=== PATIENT | male | born 1965 | race Caucasian/White ===

== ENCOUNTER 2022-04-09 12:35 | Outpatient (RCR) | payer OTHER, SELFPAY ==
[2022-04-09 12:50] LABS: Basophils Absolute Auto 0.04 K/uL (0.00-0.30); Basophils Percent Auto 0.8 % (0.0-3.0); Eosinophils Percent Auto 2.1 % (0.0-7.0); Hematocrit 38.4 % (37.0-53.0); Hemoglobin* 13.5 gm/dL (13.5-17.5); Immature Granulocytes Abs Auto 0.01 K/uL (0.00-0.30); Lymphocytes Absolute Auto 1.02 K/uL (0.90-2.90); Lymphocytes Percent Auto 21.2 % (20-44); Mean Corpuscular HGB Conc 35 gm/dL (32-36); Mean Corpuscular Hemoglobin 44 pg (26-34); Mean Corpuscular Volume 125 fL (80-100); Monocytes Percent Auto 5.8 % (0.0-11.0); Neutrophils Absolute Auto 3.37 K/uL (1.7-7.0); Neutrophils Percent Auto 69.9 % (42.0-72.0); Platelet Count* 376 K/uL (140-440); RDW Coefficient of Variation % 11.1 % (11.5-15.5); Red Blood Count 3.07 m/uL (4.30-5.90); White Blood Count* 4.82 K/uL (4.50-11.00)
[2022-04-09 12:54] LABS: Slide Review Reflex No
[2022-04-09 13:10] LABS: Albumin* 4.3 g/dL (3.3-5.0)
[2022-04-09 13:11] LABS: Chloride* 102 mmol/L (96-114); Potassium* 4.2 mmol/L (3.6-5.1); Sodium* 137 mmol/L (135-149)
[2022-04-09 13:13] LABS: Alkaline Phosphatase* 58 U/L (40-150); Aspartate Amino Transferase* 28 U/L (12-35); Bilirubin Total* 0.8 mg/dL (0.1-1.5); Blood Urea Nitrogen* 18 mg/dL (7-30); Carbon Dioxide* 33 mmol/L (20-32); Glucose* 101 mg/dL (60-115)
[2022-04-09 13:14] LABS: Alanine Aminotransferase* 16 U/L (4-50); Calcium* 8.7 mg/dL (8.4-10.6)
[2022-04-09 14:10] LABS: Lactate Dehydrogenase* 719 U/L (313-618)
== END 2022-05-04 23:59 | disposition home or self-care (01) ==
LOC: CCIC 12:35
PROVIDERS: PCP Family Medicine; Visit Provider Internal Medicine Hematology & Oncology
DX: D45 Polycythemia vera (principal)
CPT/HCPCS: 36415; 80053; 83615; 85025; 99212; 99213; 99214

== ENCOUNTER 2022-10-21 08:00 | Outpatient (RCR) | payer OTHER, SELFPAY ==
[2022-07-08 08:43] LABS: Basophils Absolute Auto 0.05 K/uL (0.00-0.30); Basophils Percent Auto 1.1 % (0.0-3.0); Eosinophils Absolute Auto 0.13 K/uL (0.00-0.50); Eosinophils Percent Auto 2.8 % (0.0-7.0); Hematocrit 38.2 % (37.0-53.0); Hemoglobin* 13.5 gm/dL (13.5-17.5); Immature Granulocytes Abs Auto 0.01 K/uL (0.00-0.30); Lymphocytes Absolute Auto 1.11 K/uL (0.90-2.90); Lymphocytes Percent Auto 23.6 % (20-44); Mean Corpuscular HGB Conc 35 gm/dL (32-36); Mean Corpuscular Hemoglobin 44 pg (26-34); Mean Corpuscular Volume 124 fL (80-100); Monocytes Percent Auto 5.7 % (0.0-11.0); Neutrophils Absolute Auto 3.13 K/uL (1.7-7.0); Neutrophils Percent Auto 66.6 % (42.0-72.0); Platelet Count* 446 K/uL (140-440); RDW Coefficient of Variation % 12.2 % (11.5-15.5); Red Blood Count 3.07 m/uL (4.30-5.90); Slide Review Reflex No
[2022-07-08 08:56] LABS: Albumin* 4.2 g/dL (3.3-5.0)
[2022-07-08 08:57] LABS: Chloride* 101 mmol/L (96-114); Potassium* 4.1 mmol/L (3.6-5.1); Sodium* 138 mmol/L (135-149)
[2022-07-08 08:59] LABS: Aspartate Amino Transferase* 20 U/L (12-35); Bilirubin Total* 0.5 mg/dL (0.1-1.5); Carbon Dioxide* 32 mmol/L (20-32); Estimated Glomerular Filt Rate 87 ml/min; Total Protein* 7.1 g/dL (6.0-8.3)
[2022-07-08 09:00] LABS: Alanine Aminotransferase* 14 U/L (4-50); Alkaline Phosphatase* 61 U/L (40-150); Blood Urea Nitrogen* 19 mg/dL (7-30); Calcium* 8.7 mg/dL (8.4-10.6); Glucose* 92 mg/dL (60-115); Lactate Dehydrogenase* 447 U/L (313-618)
--- NOTE | 2022-07-10 11:58 | ONC.NURNOTE ---
Lab results reviewed by Dr Lewis and called to Tahir ann appts reviewed and scheduled for 3 months reports no concerns or changes dose reviewed
[2022-10-21 08:31] LABS: Basophils Percent Auto 1.2 % (0.0-3.0); Eosinophils Percent Auto 1.9 % (0.0-7.0); Hemoglobin* 13.4 gm/dL (13.5-17.5); Immature Granulocytes Pct Auto 0.2 %; Lymphocytes Percent Auto 26.3 % (20-44); Mean Corpuscular HGB Conc 35 gm/dL (32-36); Mean Corpuscular Hemoglobin 44 pg (26-34); Mean Corpuscular Volume 124 fL (80-100); Monocytes Percent Auto 6.5 % (0.0-11.0); Neutrophils Percent Auto 63.9 % (42.0-72.0); Platelet Count* 448 K/uL (140-440); RDW Coefficient of Variation % 11.8 % (11.5-15.5); Red Blood Count 3.06 m/uL (4.30-5.90); White Blood Count* 4.14 K/uL (4.50-11.00)
[2022-10-21 08:48] LABS: Albumin* 4.1 g/dL (3.3-5.0); Chloride* 103 mmol/L (96-114); Potassium* 3.9 mmol/L (3.6-5.1); Sodium* 138 mmol/L (135-149)
[2022-10-21 08:50] LABS: Estimated Glomerular Filt Rate 87 ml/min
[2022-10-21 08:51] LABS: Alanine Aminotransferase* 20 U/L (4-50); Alkaline Phosphatase* 55 U/L (40-150); Aspartate Amino Transferase* 23 U/L (12-35); Bilirubin Total* 0.9 mg/dL (0.1-1.5); Blood Urea Nitrogen* 20 mg/dL (7-30); Calcium* 8.5 mg/dL (8.4-10.6); Carbon Dioxide* 32 mmol/L (20-32); Glucose* 86 mg/dL (60-115); Lactate Dehydrogenase* 190 U/L (120-246); Total Protein* 6.9 g/dL (6.0-8.3)
[2022-10-21 09:07] LABS: Slide Review Reflex Yes
[2022-10-21 09:08] LABS: Slide Review Acceptable Review (Acceptable)
--- NOTE | 2022-10-27 15:54 | ONC.NURNOTE ---
lab results reviewed by Dr Mike and called to Tahir message left on to call with results- stable next apps due lab in January and provider Delmy
== END 2023-01-04 23:59 | disposition home or self-care (01) ==
LOC: CCIC 08:00
PROVIDERS: Clinical Nurse Specialist; PCP Family Medicine; Referring Provider Family Medicine; Visit Provider Internal Medicine Hematology & Oncology
DX: D45 Polycythemia vera (principal)
CPT/HCPCS: 36415; 80053; 83615; 85025

== ENCOUNTER 2023-06-10 10:00 | Outpatient (RCR) | payer OTHER, SELFPAY ==
[2023-01-08 10:18] LABS: Basophils Absolute Auto 0.05 K/uL (0.00-0.30); Eosinophils Absolute Auto 0.08 K/uL (0.00-0.50); Eosinophils Percent Auto 1.6 % (0.0-7.0); Hemoglobin* 13.7 gm/dL (13.5-17.5); Immature Granulocytes Abs Auto 0.01 K/uL (0.00-0.30); Immature Granulocytes Pct Auto 0.2 %; Lymphocytes Absolute Auto 1.02 K/uL (0.90-2.90); Lymphocytes Percent Auto 20.4 % (20-44); Mean Corpuscular HGB Conc 35 gm/dL (32-36); Mean Corpuscular Hemoglobin 43 pg (26-34); Mean Corpuscular Volume 123 fL (80-100); Monocytes Percent Auto 5.2 % (0.0-11.0); Neutrophils Absolute Auto 3.59 K/uL (1.7-7.0); Neutrophils Percent Auto 71.6 % (42.0-72.0); Platelet Count* 504 K/uL (140-440); RDW Coefficient of Variation % 11.7 % (11.5-15.5); Red Blood Count 3.17 m/uL (4.30-5.90); White Blood Count* 5.01 K/uL (4.50-11.00)
[2023-01-08 10:25] LABS: Slide Review Reflex No
[2023-01-08 10:44] LABS: Albumin* 4.1 g/dL (3.3-5.0); Chloride* 102 mmol/L (96-114); Sodium* 136 mmol/L (135-149)
[2023-01-08 10:45] LABS: Potassium* 4.2 mmol/L (3.6-5.1)
[2023-01-08 10:47] LABS: Alkaline Phosphatase* 57 U/L (40-150); Aspartate Amino Transferase* 27 U/L (12-35); Bilirubin Total* 0.8 mg/dL (0.1-1.5); Blood Urea Nitrogen* 21 mg/dL (7-30); Calcium* 8.5 mg/dL (8.4-10.6); Carbon Dioxide* 31 mmol/L (20-32); Creatinine* 1.1 mg/dL (0.5-1.5); Estimated Glomerular Filt Rate 77 ml/min; Glucose* 95 mg/dL (60-115); Lactate Dehydrogenase* 239 U/L (120-246); Total Protein* 6.9 g/dL (6.0-8.3)
[2023-01-08 10:48] LABS: Alanine Aminotransferase* 24 U/L (4-50)
--- NOTE | 2023-01-13 14:57 | ONC.NURNOTE ---
Lab results reviewed by Dr Lewis and called to Tahir. watching platelets- no dose changes next lab and MD appt has been set up
[2023-04-16 09:41] LABS: Basophils Absolute Auto 0.05 K/uL (0.00-0.30); Basophils Percent Auto 1.1 % (0.0-3.0); Eosinophils Absolute Auto 0.15 K/uL (0.00-0.50); Eosinophils Percent Auto 3.2 % (0.0-7.0); Hematocrit 41.8 % (37.0-53.0); Hemoglobin* 14.6 gm/dL (13.5-17.5); Lymphocytes Absolute Auto 1.25 K/uL (0.90-2.90); Lymphocytes Percent Auto 26.3 % (20-44); Mean Corpuscular HGB Conc 35 gm/dL (32-36); Mean Corpuscular Hemoglobin 42 pg (26-34); Mean Corpuscular Volume 122 fL (80-100); Neutrophils Absolute Auto 3.07 K/uL (1.7-7.0); Neutrophils Percent Auto 64.4 % (42.0-72.0); Platelet Count* 619 K/uL (140-440); RDW Coefficient of Variation % 11.5 % (11.5-15.5); Red Blood Count 3.44 m/uL (4.30-5.90); White Blood Count* 4.76 K/uL (4.50-11.00)
[2023-04-16 09:42] LABS: Slide Review Reflex No
[2023-04-16 10:21] LABS: Albumin* 4.2 g/dL (3.3-5.0)
[2023-04-16 10:22] LABS: Chloride* 99 mmol/L (96-114); Potassium* 3.8 mmol/L (3.6-5.1); Sodium* 136 mmol/L (135-149)
[2023-04-16 10:24] LABS: Alkaline Phosphatase* 62 U/L (40-150); Aspartate Amino Transferase* 28 U/L (12-35); Bilirubin Total* 0.8 mg/dL (0.1-1.5); Carbon Dioxide* 34 mmol/L (20-32); Creatinine* 1.1 mg/dL (0.5-1.5); Estimated Glomerular Filt Rate 77 ml/min; Total Protein* 7.4 g/dL (6.0-8.3)
[2023-04-16 10:25] LABS: Alanine Aminotransferase* 27 U/L (4-50); Blood Urea Nitrogen* 21 mg/dL (7-30); Calcium* 8.6 mg/dL (8.4-10.6); Glucose* 69 mg/dL (60-115); Lactate Dehydrogenase* 249 U/L (120-246)
[2023-06-10 10:39] LABS: Basophils Percent Auto 1.3 % (0.0-3.0); Eosinophils Percent Auto 3.6 % (0.0-7.0); Hematocrit 39.3 % (37.0-53.0); Hemoglobin* 13.5 gm/dL (13.5-17.5); Immature Granulocytes Pct Auto 0.5 %; Lymphocytes Percent Auto 20.6 % (20-44); Mean Corpuscular HGB Conc 34 gm/dL (32-36); Mean Corpuscular Hemoglobin 43 pg (26-34); Mean Corpuscular Volume 125 fL (80-100); Monocytes Percent Auto 6.4 % (0.0-11.0); Neutrophils Percent Auto 67.6 % (42.0-72.0); Platelet Count* 505 K/uL (140-440); RDW Coefficient of Variation % 13.7 % (11.5-15.5); Red Blood Count 3.14 m/uL (4.30-5.90); White Blood Count* 3.88 K/uL (4.50-11.00)
[2023-06-10 10:44] LABS: Slide Review Reflex No
== END 2023-07-07 23:59 | disposition home or self-care (01) ==
LOC: CCIC 10:00
PROVIDERS: Clinical Nurse Specialist; Visit Provider Internal Medicine Hematology & Oncology
DX: D45 Polycythemia vera (principal)
CPT/HCPCS: 36415; 80053; 83615; 85025; 99212; 99213; 99214

== ENCOUNTER 2024-01-19 08:00 | Outpatient (RCR) | payer OTHER, SELFPAY ==
[2023-08-05 11:46] LABS: Eosinophils Percent Auto 2.5 % (0.0-7.0); Hematocrit 39.5 % (37.0-53.0); Hemoglobin* 13.8 gm/dL (13.5-17.5); Lymphocytes Percent Auto 30.7 % (20-44); Mean Corpuscular HGB Conc 35 gm/dL (32-36); Mean Corpuscular Hemoglobin 44 pg (26-34); Mean Corpuscular Volume 126 fL (80-100); Monocytes Percent Auto 5.8 % (0.0-11.0); Platelet Count* 491 K/uL (140-440); RDW Coefficient of Variation % 12.9 % (11.5-15.5); Red Blood Count 3.13 m/uL (4.30-5.90); White Blood Count* 3.97 K/uL (4.50-11.00)
[2023-08-05 11:50] LABS: Slide Review Reflex No
--- NOTE | 2023-08-05 16:46 | ONC.NURNOTE ---
Lab results reviewed by Dr Lewis and results left on patients voicemail dose to continue at 1550mg 6d/wk and 1000mg 1d/wk next lab and appt 10/20/23
[2023-10-20 08:57] LABS: Basophils Percent Auto 0.8 % (0.0-3.0); Eosinophils Percent Auto 2.2 % (0.0-7.0); Hematocrit 38.8 % (37.0-53.0); Hemoglobin* 13.6 gm/dL (13.5-17.5); Immature Granulocytes Pct Auto 0.3 %; Lymphocytes Percent Auto 30.3 % (20-44); Mean Corpuscular HGB Conc 35 gm/dL (32-36); Mean Corpuscular Hemoglobin 44 pg (26-34); Mean Corpuscular Volume 127 fL (80-100); Monocytes Percent Auto 6.2 % (0.0-11.0); Neutrophils Percent Auto 60.2 % (42.0-72.0); Platelet Count* 472 K/uL (140-440); RDW Coefficient of Variation % 12.4 % (11.5-15.5); Red Blood Count 3.06 m/uL (4.30-5.90); White Blood Count* 3.56 K/uL (4.50-11.00)
[2023-10-20 08:58] LABS: Slide Review Reflex No
[2023-10-20 09:13] LABS: Albumin* 4.4 g/dL (3.3-5.0); Chloride* 102 mmol/L (96-114)
[2023-10-20 09:14] LABS: Potassium* 4.3 mmol/L (3.6-5.1); Sodium* 139 mmol/L (135-149)
[2023-10-20 09:16] LABS: Alkaline Phosphatase* 50 U/L (40-150); Anion Gap 7 mEq/L (7-15); Aspartate Amino Transferase* 26 U/L (12-35); Bilirubin Total* 0.9 mg/dL (0.1-1.5); Blood Urea Nitrogen* 20 mg/dL (7-30); Carbon Dioxide* 30 mmol/L (20-32); Estimated Glomerular Filt Rate 86 ml/min; Lactate Dehydrogenase* 240 U/L (120-246); Total Protein* 7.4 g/dL (6.0-8.3)
[2023-10-20 09:17] LABS: Alanine Aminotransferase* 19 U/L (4-50); Calcium* 8.6 mg/dL (8.4-10.6); Glucose* 84 mg/dL (60-115)
[2024-01-19 08:12] LABS: Basophils Percent Auto 0.8 % (0.0-3.0); Eosinophils Percent Auto 2.4 % (0.0-7.0); Hematocrit 38.8 % (37.0-53.0); Hemoglobin* 13.5 gm/dL (13.5-17.5); Immature Granulocytes Pct Auto 0.3 %; Lymphocytes Percent Auto 28.5 % (20-44); Mean Corpuscular HGB Conc 35 gm/dL (32-36); Mean Corpuscular Hemoglobin 43 pg (26-34); Mean Corpuscular Volume 125 fL (80-100); Monocytes Percent Auto 6.4 % (0.0-11.0); Neutrophils Percent Auto 61.6 % (42.0-72.0); Platelet Count* 372 K/uL (140-440); RDW Coefficient of Variation % 12.3 % (11.5-15.5); Red Blood Count 3.11 m/uL (4.30-5.90); Slide Review Reflex No; White Blood Count* 3.75 K/uL (4.50-11.00)
--- NOTE | 2024-01-19 11:08 | ONC.NURNOTE ---
Patient here for labs for his hydrea dosing. 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 Energy Efficiency Specialist contacted patient and discovered that patient has had rectal bleeding since the end of December and patient was told to stop his aspirin by our office. His bleeding has stopped, so he is wondering if he should restart this. Nursing to discuss with oncologist when she returns on Thursday, patient expecting phone call back regarding this Wednesday 01/24.
--- NOTE | 2024-01-26 11:29 | ONC.NURNOTE ---
Re; rectal bleeding and daily Aspirin dose patient has not had any bleeding since stopping ASA end of December per Dr Lewis- he should restart his low dose ASA with food and call if bleeding recurs note: patient had these same symptoms in 2021- had a colonoscopy with Dr Winters and it was normal.- Per Tahir he does not need a repeat colonoscopy for 10 years from 2021 Instructed to call us back if bleeding recurs but he will need to contact Dr Wesley for further evaluation patient states understanding plan to continue Hydrea same dosing
== END 2024-02-01 23:59 | disposition home or self-care (01) ==
LOC: CCIC 08:00
PROVIDERS: PCP Student in an Organized Health Care Education/Training Program; Referring Provider Student in an Organized Health Care Education/Training Program; Visit Provider Internal Medicine Hematology & Oncology
DX: D45 Polycythemia vera (principal)
CPT/HCPCS: 36415; 80053; 83615; 85025; 99213; 99214; G0463

== ENCOUNTER 2024-10-17 14:00 | Outpatient (RCR) | payer BC, OTHER, SELFPAY ==
[2024-04-20 10:29] LABS: Basophils Percent Auto 0.9 % (0.0-3.0); Eosinophils Percent Auto 1.7 % (0.0-7.0); Hematocrit 35.8 % (37.0-53.0); Hemoglobin* 12.5 gm/dL (13.5-17.5); Immature Granulocytes Pct Auto 0.6 %; Mean Corpuscular HGB Conc 35 gm/dL (32-36); Mean Corpuscular Hemoglobin 45 pg (26-34); Mean Corpuscular Volume 127 fL (80-100); Monocytes Percent Auto 5.5 % (0.0-11.0); Neutrophils Percent Auto 63.3 % (42.0-72.0); Platelet Count* 513 K/uL (140-440); RDW Coefficient of Variation % 12.8 % (11.5-15.5); Red Blood Count 2.81 m/uL (4.30-5.90); White Blood Count* 3.47 K/uL (4.50-11.00)
[2024-04-20 10:30] LABS: Albumin* 4.3 g/dL (3.3-5.0); Chloride* 102 mmol/L (96-114)
[2024-04-20 10:31] LABS: Potassium* 4.5 mmol/L (3.6-5.1); Sodium* 137 mmol/L (135-149)
[2024-04-20 10:32] LABS: Lactate Dehydrogenase* 225 U/L (120-246); Slide Review Reflex No
[2024-04-20 10:33] LABS: Alkaline Phosphatase* 54 U/L (40-150); Anion Gap 2 mEq/L (7-15); Aspartate Amino Transferase* 36 U/L (12-35); Bilirubin Total* 0.7 mg/dL (0.1-1.5); Blood Urea Nitrogen* 18 mg/dL (7-30); Carbon Dioxide* 33 mmol/L (20-32); Creatinine* 0.9 mg/dL (0.5-1.5); Estimated Glomerular Filt Rate 97 ml/min
[2024-04-20 10:34] LABS: Alanine Aminotransferase* 24 U/L (4-50); Calcium* 8.6 mg/dL (8.4-10.6); Glucose* 95 mg/dL (60-115)
[2024-07-21 08:20] LABS: Eosinophils Percent Auto 2.3 % (0.0-7.0); Hematocrit 36.3 % (37.0-53.0); Hemoglobin* 12.4 gm/dL (13.5-17.5); Immature Granulocytes Pct Auto 0.3 %; Lymphocytes Percent Auto 29.4 % (20-44); Mean Corpuscular HGB Conc 34 gm/dL (32-36); Mean Corpuscular Hemoglobin 44 pg (26-34); Mean Corpuscular Volume 129 fL (80-100); Monocytes Percent Auto 5.4 % (0.0-11.0); Neutrophils Percent Auto 61.6 % (42.0-72.0); Platelet Count* 390 K/uL (140-440); Red Blood Count 2.82 m/uL (4.30-5.90); White Blood Count* 2.99 K/uL (4.50-11.00)
[2024-07-21 08:40] LABS: Albumin* 4.5 g/dL (3.3-5.0); Chloride* 98 mmol/L (96-114); Sodium* 138 mmol/L (135-149)
[2024-07-21 08:41] LABS: Potassium* 3.9 mmol/L (3.6-5.1); Slide Review Reflex No
[2024-07-21 08:43] LABS: Alkaline Phosphatase* 52 U/L (40-150); Anion Gap 7 mEq/L (7-15); Aspartate Amino Transferase* 27 U/L (12-35); Bilirubin Total* 0.9 mg/dL (0.1-1.5); Blood Urea Nitrogen* 24 mg/dL (7-30); Carbon Dioxide* 33 mmol/L (20-32); Creatinine* 1.1 mg/dL (0.5-1.5); Estimated Glomerular Filt Rate 76 ml/min; Lactate Dehydrogenase* 249 U/L (120-246); Total Protein* 7.3 g/dL (6.0-8.3)
[2024-07-21 08:44] LABS: Alanine Aminotransferase* 19 U/L (4-50); Calcium* 8.7 mg/dL (8.4-10.6); Glucose* 67 mg/dL (60-115)
--- NOTE | 2024-07-21 13:08 | ONC.NURNOTE ---
Lab results reviewed with patient Dr Lewis to review at time of next clinic
--- NOTE | 2024-07-25 15:40 | ONC.NURNOTE ---
Patient called with dose reduction correction made on current dose which is 1500 mg daily reduced to 1000mg 2d/week and 1500 mg 5 day/week next lab is 3mths with follow up appt
[2024-10-17 14:18] LABS: Basophils Percent Auto 0.7 % (0.0-3.0); Eosinophils Percent Auto 1.6 % (0.0-7.0); Hematocrit 37.4 % (37.0-53.0); Hemoglobin* 12.9 gm/dL (13.5-17.5); Immature Granulocytes Pct Auto 0.2 %; Lymphocytes Percent Auto 18.6 % (20-44); Mean Corpuscular HGB Conc 35 gm/dL (32-36); Mean Corpuscular Hemoglobin 43 pg (26-34); Mean Corpuscular Volume 126 fL (80-100); Monocytes Percent Auto 5.1 % (0.0-11.0); Neutrophils Percent Auto 73.8 % (42.0-72.0); Platelet Count* 642 K/uL (140-440); Red Blood Count 2.98 m/uL (4.30-5.90); White Blood Count* 4.31 K/uL (4.50-11.00)
[2024-10-17 14:26] LABS: Slide Review Reflex No
[2024-10-17 14:39] LABS: Albumin* 4.4 g/dL (3.3-5.0); Chloride* 100 mmol/L (96-114); Sodium* 139 mmol/L (135-149)
[2024-10-17 14:42] LABS: Alanine Aminotransferase* 29 U/L (4-50); Alkaline Phosphatase* 50 U/L (40-150); Anion Gap 6 mEq/L (7-15); Aspartate Amino Transferase* 27 U/L (12-35); Bilirubin Total* 0.5 mg/dL (0.1-1.5); Blood Urea Nitrogen* 27 mg/dL (7-30); Carbon Dioxide* 33 mmol/L (20-32); Creatinine* 1.2 mg/dL (0.5-1.5); Estimated Glomerular Filt Rate 69 ml/min; Glucose* 93 mg/dL (60-115); Lactate Dehydrogenase* 249 U/L (120-246); Total Protein* 7.3 g/dL (6.0-8.3)
[2024-10-17 14:43] LABS: Calcium* 8.6 mg/dL (8.4-10.6)
== END 2024-10-17 23:59 | disposition home or self-care (01) ==
LOC: CCIC 14:00
PROVIDERS: Clinical Nurse Specialist; PCP Student in an Organized Health Care Education/Training Program; Referring Provider Student in an Organized Health Care Education/Training Program; Visit Provider Internal Medicine Hematology & Oncology
DX: D45 Polycythemia vera (principal)
CPT/HCPCS: 36415; 80053; 83615; 85025; 99213; 99214; G0463

== ENCOUNTER 2024-10-25 07:10 | Outpatient (CLI) | payer BC, SELFPAY ==
--- NOTE | 2024-10-25 07:15 | CRLHL7_ITS ---
For Patients: As a result of the Century Cures Act, medical imaging exams and procedure reports are released immediately into your electronic medical record. You may view this report before your referring provider. If you have questions, please contact your health care provider. INDICATION: Polycythemia vera TECHNIQUE: Ultrasound abdomen complete. Sonographic images of the entire abdomen were obtained using delcid-scale and duplex doppler. COMPARISON: 01/25/2019 spleen ultrasound FINDINGS: Liver: Normal-size. Contour appears slightly nodular. Normal echotexture. No masses. No intrahepatic biliary dilatation. Gallbladder: No stones or sludge. Normal wall thickness. No pericholecystic fluid. Common bile duct: 3 mm. Pancreas: Normal in size and appearance. Spleen: Stable splenomegaly, 12.1 cm. Kidneys: Both kidneys are normal in size. Normal echotexture and cortex. No masses, stones, or hydronephrosis. Vasculature: Proximal abdominal aorta and IVC are normal in caliber. The portal vein diameter upper limits of normal at 15 mm. Normal flow direction and waveform in the portal vein. IMPRESSION: 1. Very subtle liver surface nodularity, can not exclude cirrhosis. 2. Main portal vein diameter upper limits of normal. Normal waveform. 3. Stable mild splenomegaly. Dictated by Aaron Siegel MD @ 10/25/2024 9:40:09 AM (Electronically Signed)
== END 2024-10-25 07:11 | disposition home or self-care (01) ==
LOC: US 07:11
PROVIDERS: PCP Student in an Organized Health Care Education/Training Program; Visit Provider Internal Medicine Hematology & Oncology
DX: D45 Polycythemia vera (principal); R16.1 Splenomegaly, not elsewhere classified
CPT/HCPCS: 76700

== ENCOUNTER 2025-05-02 09:15 | Outpatient (RCR) | payer BC, SELFPAY ==
--- NOTE | 2024-10-27 09:42 | ONC.NURNOTE ---
Dr. Lewis reviewed ultrasound done on 10/25/24. No changes to plan of care. Debbie left pt a message.
[2024-11-15 08:52] LABS: Hematocrit 38.0 % (37.0-53.0); Hemoglobin* 13.0 gm/dL (13.5-17.5); Immature Granulocytes Pct Auto 0.3 %; Mean Corpuscular HGB Conc 34 gm/dL (32-36); Mean Corpuscular Hemoglobin 43 pg (26-34); Mean Corpuscular Volume 125 fL (80-100); RDW Coefficient of Variation % 12.1 % (11.5-15.5); Red Blood Count 3.03 m/uL (4.30-5.90); White Blood Count* 3.45 K/uL (4.50-11.00)
[2024-11-15 09:29] LABS: Immature Granulocytes Abs Auto 0.00 K/uL (0.00-0.30); Lymphocytes Absolute Auto 1.00 K/uL (0.90-2.90); Slide Review Reflex No
[2024-12-14 08:20] LABS: Hematocrit 37.7 % (37.0-53.0); Hemoglobin* 13.0 gm/dL (13.5-17.5); Immature Granulocytes Pct Auto 0.2 %; Mean Corpuscular HGB Conc 35 gm/dL (32-36); Mean Corpuscular Hemoglobin 43 pg (26-34); Mean Corpuscular Volume 124 fL (80-100); RDW Coefficient of Variation % 12.2 % (11.5-15.5); Red Blood Count 3.05 m/uL (4.30-5.90); White Blood Count* 4.16 K/uL (4.50-11.00)
[2024-12-14 08:24] LABS: Immature Granulocytes Abs Auto 0.00 K/uL (0.00-0.30); Lymphocytes Absolute Auto 1.10 K/uL (0.90-2.90)
[2024-12-14 08:33] LABS: Slide Review Reflex No
--- NOTE | 2024-12-28 08:04 | ONC.NURNOTE ---
Labs reviewed by Dr. Lewis and Dr. Lewis would like pt to return in 4 weeks for a blood draw. Left message with pt to schedule.
[2025-01-17 11:04] LABS: Hematocrit 39.8 % (37.0-53.0); Hemoglobin* 13.6 gm/dL (13.5-17.5); Immature Granulocytes Pct Auto 0.5 %; Mean Corpuscular HGB Conc 34 gm/dL (32-36); Mean Corpuscular Hemoglobin 42 pg (26-34); Mean Corpuscular Volume 122 fL (80-100); RDW Coefficient of Variation % 12.3 % (11.5-15.5); Red Blood Count 3.27 m/uL (4.30-5.90); White Blood Count* 4.10 K/uL (4.50-11.00)
[2025-01-17 11:08] LABS: Immature Granulocytes Abs Auto 0.00 K/uL (0.00-0.30); Lymphocytes Absolute Auto 1.00 K/uL (0.90-2.90); Slide Review Reflex No
--- NOTE | 2025-01-18 13:03 | ONC.NURNOTE ---
Pt present at [facility] yesterday for labs. MD reviewed them today and advised a change in dose. Pt was instructed to take 3 tabs (1500 mg) daily x 5 days of the week and 4 tabs (2000 mg) daily x 2 days of the week. Pt will return to [facility] for lab/MD on 02/13/2025. Pt verbalized understanding and has no questions at this time.
[2025-02-13 14:44] LABS: Hematocrit 35.5 % (37.0-53.0); Hemoglobin* 12.2 gm/dL (13.5-17.5); Immature Granulocytes Pct Auto 0.6 %; Mean Corpuscular HGB Conc 34 gm/dL (32-36); Mean Corpuscular Hemoglobin 42 pg (26-34); Mean Corpuscular Volume 123 fL (80-100); RDW Coefficient of Variation % 13.3 % (11.5-15.5); Red Blood Count 2.88 m/uL (4.30-5.90); White Blood Count* 3.36 K/uL (4.50-11.00)
[2025-02-13 14:57] LABS: Immature Granulocytes Abs Auto 0.00 K/uL (0.00-0.30); Lymphocytes Absolute Auto 0.90 K/uL (0.90-2.90); Slide Review Reflex No
[2025-02-13 15:13] LABS: Albumin* 4.2 g/dL (3.3-5.0); Chloride* 100 mmol/L (96-114)
[2025-02-13 15:14] LABS: Potassium* 4.3 mmol/L (3.6-5.1); Sodium* 138 mmol/L (135-149)
[2025-02-13 15:16] LABS: Alanine Aminotransferase* 17 U/L (4-50); Alkaline Phosphatase* 43 U/L (40-150); Anion Gap 6 mEq/L (7-15); Aspartate Amino Transferase* 24 U/L (12-35); Bilirubin Total* 0.8 mg/dL (0.1-1.5); Blood Urea Nitrogen* 22 mg/dL (7-30); Calcium* 8.8 mg/dL (8.4-10.6); Carbon Dioxide* 32 mmol/L (20-32); Creatinine* 1.0 mg/dL (0.5-1.5); Est. Creatinine Clearance* 81.96; Estimated Glomerular Filt Rate 86 ml/min; Glucose* 112 mg/dL (60-115); Total Protein* 7.0 g/dL (6.0-8.3)
[2025-03-14 10:43] LABS: Hematocrit 36.6 % (37.0-53.0); Hemoglobin* 12.5 gm/dL (13.5-17.5); Immature Granulocytes Pct Auto 0.3 %; Mean Corpuscular HGB Conc 34 gm/dL (32-36); Mean Corpuscular Hemoglobin 42 pg (26-34); Mean Corpuscular Volume 124 fL (80-100); RDW Coefficient of Variation % 14.6 % (11.5-15.5); Red Blood Count 2.95 m/uL (4.30-5.90); White Blood Count* 3.35 K/uL (4.50-11.00)
[2025-03-14 11:15] LABS: Immature Granulocytes Abs Auto 0.00 K/uL (0.00-0.30); Lymphocytes Absolute Auto 1.00 K/uL (0.90-2.90)
[2025-03-14 11:16] LABS: Slide Review Reflex Yes
[2025-03-14 16:33] LABS: Slide Review Acceptable Review (Acceptable)
--- NOTE | 2025-03-15 13:11 | ONC.NURNOTE ---
DOSE CHANGE PER DR TIRADO; increase hydrea to 2000mg 4d/week and 1500mg 3d/wk Tahir confirms change next lab due in 4 weeks- has appts
--- NOTE | 2025-03-27 12:51 | ONC.NURNOTE ---
RX clarification with [facility] insurance will only allow 30 day supply they will dispense the #108 tabs/30 d and will continue to refill every 30 days until the RX requested tablets have been dispensed dosing is hydrea 2000 mg 4d/wk and 1500 mg/ 3d/wk
[2025-04-18 10:38] LABS: Hematocrit 35.5 % (37.0-53.0); Hemoglobin* 12.4 gm/dL (13.5-17.5); Immature Granulocytes Pct Auto 0.4 %; Mean Corpuscular HGB Conc 35 gm/dL (32-36); Mean Corpuscular Hemoglobin 43 pg (26-34); Mean Corpuscular Volume 124 fL (80-100); RDW Coefficient of Variation % 13.7 % (11.5-15.5); Red Blood Count 2.87 m/uL (4.30-5.90); White Blood Count* 2.76 K/uL (4.50-11.00)
[2025-04-18 10:49] LABS: Immature Granulocytes Abs Auto 0.00 K/uL (0.00-0.30); Lymphocytes Absolute Auto 1.00 K/uL (0.90-2.90); Slide Review Reflex No
--- NOTE | 2025-04-18 11:40 | ONC.NURNOTE ---
Lab results reviewed with Es Strange APRN and called to Tahir- slowly rising platelets, with increasing neutropenia no dose change appt with Dr Lewis moved up to 05/02 with repeat CBC prior watch for signs of infection patient states understanding continues on low dose aspirin daily
[2025-05-02 09:49] LABS: Hematocrit 36.8 % (37.0-53.0); Hemoglobin* 12.6 gm/dL (13.5-17.5); Immature Granulocytes Pct Auto 0.4 %; Mean Corpuscular HGB Conc 34 gm/dL (32-36); Mean Corpuscular Hemoglobin 43 pg (26-34); Mean Corpuscular Volume 125 fL (80-100); RDW Coefficient of Variation % 13.4 % (11.5-15.5); Red Blood Count 2.94 m/uL (4.30-5.90); White Blood Count* 2.72 K/uL (4.50-11.00)
[2025-05-02 10:03] LABS: Immature Granulocytes Abs Auto 0.00 K/uL (0.00-0.30); Lymphocytes Absolute Auto 0.80 K/uL (0.90-2.90); Slide Review Reflex No
[2025-05-02 10:48] LABS: Albumin* 4.1 g/dL (3.3-5.0); Chloride* 101 mmol/L (96-114); Potassium* 4.4 mmol/L (3.6-5.1); Sodium* 138 mmol/L (135-149)
[2025-05-02 10:51] LABS: Alanine Aminotransferase* 18 U/L (4-50); Alkaline Phosphatase* 55 U/L (40-150); Anion Gap 5 mEq/L (7-15); Aspartate Amino Transferase* 35 U/L (12-35); Bilirubin Total* 0.5 mg/dL (0.1-1.5); Blood Urea Nitrogen* 20 mg/dL (7-30); Carbon Dioxide* 32 mmol/L (20-32); Creatinine* 1.0 mg/dL (0.5-1.5); Est. Creatinine Clearance* 81.03; Estimated Glomerular Filt Rate 85 ml/min; Total Protein* 6.9 g/dL (6.0-8.3)
[2025-05-02 10:52] LABS: Calcium* 8.7 mg/dL (8.4-10.6); Glucose* 62 mg/dL (60-115)
== END 2025-05-14 23:59 | disposition home or self-care (01) ==
LOC: CCIC 09:15
PROVIDERS: Clinical Nurse Specialist; PCP Student in an Organized Health Care Education/Training Program; Referring Provider Student in an Organized Health Care Education/Training Program; Visit Provider Internal Medicine Hematology & Oncology
DX: D45 Polycythemia vera (principal); Z79.82 Long term (current) use of aspirin; Z87.19 Personal history of other diseases of the digestive system
CPT/HCPCS: 36415; 80053; 83615; 85025; 99213; 99214; G0463

== ENCOUNTER 2025-05-09 09:17 | Outpatient (CLI) | payer BC, SELFPAY ==
[2025-05-09 09:26] VITALS: BP 108/73; PULSE 83; RESP 16; O2SAT 100; BMI 21.2
[2025-05-09 10:21] VITALS: BP 119/74; PULSE 75; RESP 16; O2SAT 99
[2025-05-09 10:28] VITALS: BP 101/69; PULSE 79; RESP 16; O2SAT 97
--- NOTE | 2025-05-09 10:28 | P.ANES_ITS ---
Anesthesia Charges Start Date/Time Anesthesia Start Date: 05/09/25 Anesthesia Start Time: 10:10 Stop Date/Time Anesthesia Stop Date: 05/09/25 Anesthesia Stop Time: 10:26 Coding CPT Codes CPT Codes: ANESTH BONE ASPIRATE/BX - 51903 ([id number]) P2 - PATIENT W/MILD SYST DISEASE, QK - SCHOOL ADJUSTMENT COUNSELOR 2-4 CNCRNT ANES PROC, QX - GROUP TEACHER SVC W/ MD MED DIRECTION
--- NOTE | 2025-05-09 10:28 | P.ANES_ITS ---
Anesthesia Charges Start Date/Time Anesthesia Start Date: 05/09/25 Anesthesia Start Time: 10:10 Stop Date/Time Anesthesia Stop Date: 05/09/25 Anesthesia Stop Time: 10:26 Coding CPT Codes CPT Codes: ANESTH BONE ASPIRATE/BX - 74227 ([id number]) P2 - PATIENT W/MILD SYST DISEASE, QX - MAKE UP GIRL SVC W/ MD MED DIRECTION, QK - FUND MANAGER 2-4 CNCRNT ANES PROC
--- NOTE | 2025-05-09 10:28 | W.ANESCHARGE ---
Anesthesia Charges Start Date/Time Anesthesia Start Date: 05/09/25 Anesthesia Start Time: 10:10 Stop Date/Time Anesthesia Stop Date: 05/09/25 Anesthesia Stop Time: 10:26 Coding CPT Codes CPT Codes: ANESTH BONE ASPIRATE/BX - 94540 ([id number]) P2 - PATIENT W/MILD SYST DISEASE, QK - PLUMBER GASFITTER 2-4 CNCRNT ANES PROC, QX - COMPUTATIONAL THEORY SCIENTIST SVC W/ MD MED DIRECTION
--- NOTE | 2025-05-09 10:28 | W.ANESCHARGE ---
Anesthesia Charges Start Date/Time Anesthesia Start Date: 05/09/25 Anesthesia Start Time: 10:10 Stop Date/Time Anesthesia Stop Date: 05/09/25 Anesthesia Stop Time: 10:26 Coding CPT Codes CPT Codes: ANESTH BONE ASPIRATE/BX - 51583 ([id number]) P2 - PATIENT W/MILD SYST DISEASE, QX - PLAY READER SVC W/ MD MED DIRECTION, QK - STOCKING INSPECTOR 2-4 CNCRNT ANES PROC
[2025-05-09 10:34] LABS: Hematocrit 36.0 % (37.0-53.0); Hemoglobin* 12.6 gm/dL (13.5-17.5); Immature Granulocytes Abs Auto 0.00 K/uL (0.00-0.30); Immature Granulocytes Pct Auto 0.4 %; Immature Reticulocyte Fraction 23.5 % (2.3-13.4); Lymphocytes Absolute Auto 1.00 K/uL (0.90-2.90); Mean Corpuscular HGB Conc 35 gm/dL (32-36); Mean Corpuscular Hemoglobin 44 pg (26-34); Mean Corpuscular Volume 125 fL (80-100); RDW Coefficient of Variation % 13.8 % (11.5-15.5); Red Blood Count 2.89 m/uL (4.30-5.90); Reticulocyte Hemoglobin Equivi 43.0 pg (29.0-35.0); Reticulocytes Absolute 0.05 # (0.03-0.08); Slide Review Reflex No; White Blood Count* 2.85 K/uL (4.50-11.00)
[2025-05-09 10:37] VITALS: BP 106/72; PULSE 71; RESP 16; O2SAT 96
[2025-05-09 10:47] VITALS: BP 123/84; PULSE 66; RESP 16; O2SAT 100
== END 2025-05-09 10:54 | disposition home or self-care (01) ==
PROVIDERS: PCP Student in an Organized Health Care Education/Training Program; Visit Provider Internal Medicine Hematology & Oncology
DX: D45 Polycythemia vera (principal)
CPT/HCPCS: 01112; 36415; 38222; 81450; 85025; 85045; 88237; 88264; 88305; 88311; 88313; 88360; J1644; J2003; J2704

== ENCOUNTER 2025-08-08 07:04 | Outpatient (CLI) | payer BC, SELFPAY ==
--- NOTE | 2025-08-08 07:15 | CRLHL7_ITS ---
For Patients: As a result of the Century Cures Act, medical imaging exams and procedure reports are released immediately into your electronic medical record. You may view this report before your referring provider. If you have questions, please contact your health care provider. CLINICAL HISTORY: admitted with pancytopenia. assess spleen size and liver COMPARISON: 10/25/2024 TECHNIQUE: Real time delcid scale imaging and color Doppler analysis was performed of the abdomen. FINDINGS: Sonographic imaging demonstrates normal size and uniform echotexture of the liver. The spleen measures 12.2 x 4.9 x 11.7 cm. The pancreas appears normal. The proximal abdominal aorta and IVC appear normal. There is no evidence of ascites. The gallbladder is of normal size and there are faint mobile echoes within the gallbladder lumen. The gallbladder wall measures 1.7 mm in thickness. The common bile duct measures 2.4 mm in size within the rod hepatis. The kidneys appear symmetric. The right kidney measures 11.0 cm in length and the left kidney measures 11.6 cm. There is no evidence of a renal calculus or hydronephrosis. IMPRESSION: Mild splenomegaly. Mild gallbladder cholesterolosis. Remainder unremarkable. Dictated by Johnathan Montana MD @ 08/08/2025 7:48:14 AM (Electronically Signed)
== END 2025-08-08 07:05 | disposition home or self-care (01) ==
LOC: US 07:05
PROVIDERS: PCP Student in an Organized Health Care Education/Training Program; Visit Provider Internal Medicine Hematology & Oncology
DX: D45 Polycythemia vera (principal); R16.1 Splenomegaly, not elsewhere classified; K82.4 Cholesterolosis of gallbladder
CPT/HCPCS: 76700